=== PATIENT | female | born 1990 | race Two or more races ===

== ENCOUNTER 2024-06-23 21:18 | Emergency (ER) | payer OTHER ==
[~2024-06-23] VITALS: Ht 160 cm; Wt 73.9 kg
[2024-06-23] MEDS ORDERED: CLONAZEPAM0.5 MG (21:31)
[2024-06-23] MEDS ORDERED: ESCITALOPRAM OX20 MG (21:33)
[2024-06-23] MEDS ORDERED: DEXAMETHASONE SODIUM PHOSPHATE 4 MG/ML VIAL IM STA (23:25)
[2024-06-23] MEDS ORDERED: DEXAMETHASONE SODIUM PHOSPHATE 4 MG/ML VIAL ONE (23:34)
[2024-06-23 23:59] LABS: HEMATOCRIT 36.7 % (36.0-45.00); HEMOGLOBIN 12.8 g/dL (12.0-15.00); MEAN CELL VOLUME 91.8 fL (80.00-100.00); MEAN CORPUSCULAR HGB CONC 34.8 g/dl (32.0-36.0); PLATELET COUNT 305 K/uL (150-450); RED CELL DISTRIBUTION WIDTH 13.5 % (11.5-14.5)
[2024-06-24 00:11] LABS: INR 1.01
[2024-06-24 00:12] LABS: CALCIUM 8.9 mg/dL (8.5-10.1); CREATININE SERUM 0.61 mg/dL (0.55-1.02); GFR 111.61; POTASSIUM 3.73 mEq/L (3.5-5.1)
[2024-06-24] MEDS ORDERED: ESGIC 50-325-41 EACH PO (02:48)
== END 2024-06-24 03:02 | disposition home or self-care (01) ==
LOC: ER 21:20
PROVIDERS: General Practice
DX: G43.909 Migraine, unspecified, not intractable, without status migrainosus (principal)
CPT/HCPCS: 36415; 70450; 96372; 99284; J1100